=== PATIENT | female | born 1955 | race African-American/Black ===

== ENCOUNTER 2017-05-16 02:59 | Emergency (ER) | payer SELFPAY ==
--- NOTE | ~2017-05-16 | ER ---
PATIENT'S NAME: CORNUCOPIA [facility] AGE: 62 Y [address] ROOM: [place] [address] LOCATION: [facility] ADMIT DATE: 05/16/2017 ER/Outpatient Report DISCHARGE DATE: FAMILY PHYSICIAN: PHYSICIAN, NO ATTENDING PHYSICIAN: Aj Davis Admission date and time documented in the medical record. I saw the patient at 0315 hours. CHIEF COMPLAINT: Total body pruritus and redness. HISTORY OF PRESENT ILLNESS: The patient is a 62-year-old female who presented to the emergency room with her whole body itching and being red. She has areas of elevated hive-like urticarial lesions. No shortness of breath. No tongue swelling. No posterior pharynx swelling. No problems swallowing. The patient is allergic to shellfish. Did eat at [employer] restaurant. Thinks she may have had cross- contamination. She also drank some lona tea around midnight that also caused her some itching. No chest pain or shortness of breath. No abdominal pain, nausea, vomiting, or diarrhea. HOME MEDICATIONS: None. ALLERGIES: SHELLFISH. SOCIAL HISTORY: The patient is a nonsmoker and nondrinker. SIGNIFICANT PAST MEDICAL HISTORY: Remote tobacco abuse, otherwise, negative. OPERATIONS: Gastric bypass procedure, cholecystectomy. REVIEW OF SYSTEMS: All systems reviewed by me are negative with the exception of those discussed in the history of present illness. PHYSICAL EXAMINATION: VITAL SIGNS: Temperature 97.4, pulse 98, respirations 18, blood pressure 128/66, O2 saturation on room air is 98%. HEAD: Normocephalic. PATIENT'S NAME: CORNUCOPIA [facility] AGE: 62 Y [address] ROOM: [place] [address] LOCATION: [facility] ADMIT DATE: 05/16/2017 ER/Outpatient Report DISCHARGE DATE: FAMILY PHYSICIAN: PHYSICIAN, NO ATTENDING PHYSICIAN: Aj Davis EYES, EARS, NOSE, AND THROAT: Clear. Mucous membranes moist. NECK: Negative. LUNGS: Clear. No rales, rhonchi, or wheezes. HEART: Regular. Pulses are palpable. ABDOMEN: Moderately obese, soft, nontender. Good bowel tones. No organomegaly or abnormal masses palpable. EXTREMITIES: Without peripheral edema, cyanosis, or deformity. NEUROVASCULAR: Intact. SKIN: The patient has generalized urticaria. IMPRESSION: Generalized urticaria hives, etiology uncertain. PLAN: The patient was given Solu-Medrol 125 mg IM in the emergency room, Benadryl 25 mg IM in the emergency room. Dismissed home. Observation. Activity as tolerated. Cool packs to rash intermittently as needed. Zyrtec 10 mg once a day, #10; prednisone 20 mg b.i.d., #14. Follow up with personal physician as needed. MD HIGINIO PISANO/modl /[id number] d: 05/16/173 t: 05/16/171809, OUTPATIENT REPORT
== END 2017-05-16 03:39 | disposition disaster alternative care site (69) ==
LOC: GMED 02:59
DX: L50.9 Urticaria, unspecified (principal); Z91.013 Allergy to seafood; Z87.891 Personal history of nicotine dependence
CPT/HCPCS: J1200; J2930